=== PATIENT | male | born 1955 | race Caucasian/White ===

== ENCOUNTER 2017-11-02 09:56 | Day surgery (SDC) | payer BC ==
[2017-11-02 10:39] LABS: #Lymphocytes 0.8 thou/uL (1.20-3.40); #Monocytes 0.8 thou/uL (0.11-0.59); %Basophils 0.1 % (0.0-1.0); %Eosinophils 0.4 % (0.0-10.0); %Lymphocytes 6.8 % (21.0-51.0); %Monocytes 7.2 % (0.0-10.0); %Neutrophils 85.5 % (42.0-75.0); Mean Corpuscular HGB CONC 32.8 g/dL (32.0-36.0); Mean Corpuscular Hemoglobin 29.5 pg (27.0-31.0); Mean Corpuscular Volume 89.9 fL (78.0-98.0); Mean Platelet Volume 7.5 fL (7.4-10.4); Platelet Count 156 thou/uL (130-400); RBC Distribution Width 12.3 % (11.5-14.5); Red Blood Cell (RBC) Count 5.43 mill/uL (4.70-6.10); White Blood Cell (WBC) Count 11.6 thou/uL (4.8-10.8)
[2017-11-02 11:03] LABS: ALT (SGPT) 18 U/L (8-55); AST (SGOT) 18 U/L (5-34); Albumin 4.4 g/dL (3.4-4.8); Alkaline Phosphatase 65 U/L (40-150); Anion Gap 9 mmol/L (10-20); BUN (Urea Nitrogen) 14 mg/dL (8.4-25.7); Bilirubin, Total 1.6 mg/dL (0.2-1.2); CK (CPK) 138 U/L (30-200); Calc. Creatinine Clearance 0 mL/min (70-130); Calcium 9.3 mg/dL (7.8-10.44); Carbon Dioxide 27 mmol/L (23-31); Chloride 104 mmol/L (98-107); Estimated GFR-MDRD 71; Globulin 2.8 g/dL (2.4-3.5); Glucose 98 mg/dL (80-115); Lipase 11 U/L (8-78); Potassium 3.8 mmol/L (3.5-5.1); Protein, Total 7.2 g/dL (5.8-8.1); Sodium 136 mmol/L (136-145)
[2017-11-02 11:09] LABS: CKMB 2.4 ng/mL (0-6.6); Troponin I Less than 0.010 ng/mL (< 0.028)
[2017-11-02] MEDS ORDERED: Iopamidol 370 76% 50 ML VIAL FS ONE (11:22)
[2017-11-02] MEDS ORDERED: ISOVUE-370 76%-LOCM 1 ML ONE (11:22)
[2017-11-02 11:52] LABS: Bilirubin Negative (Negative); Blood, Urine Negative (Negative); Clarity CLEAR (Clear); Glucose, Urine (Dipstick) Negative (Negative); Leukocyte Negative (Negative); Nitrite Negative (Negative); Protein, Urine (Dipstick) Negative (Neg-Trace); pH, Urine 7.5 (5.0-9.0)
--- NOTE | 2017-11-02 13:49 | CT ---
CT ABDOMEN AND PELVIS WITH IV CONTRAST: 11/02/2017 HISTORY: Epigastric abdominal pain and right lower quadrant pain that started one day ago. FINDINGS: There are gallbladder calculi visualized, with the largest calculus seen near the fundus of the gallb ladder, measuring 3.1 cm. There is minimal atelectasis versus scarring at each lung base. The liver, spleen, pancreas, bilateral adrenal glands, kidneys, and urinary bladder demonstrate a nor mal CT appearance. The appendix is dilated, measuring 1.5 cm in diameter, and there is adjacent periappendiceal inflamma tory change, with a small amount of fluid in the pelvis. There is also cecal apical thickening, and findings are compatible with acute appendicitis. No free intraperitoneal gas is seen, and there is n o fluid collection seen to suggest an abscess. The opacified small bowel is normal in caliber. Minimal vascular calcification is seen in the abdominal aorta and iliac arteries. The common iliac a rteries are ectatic bilaterally. Small fat-containing inguinal hernias are present. Calcification is seen in the prostate gland, and the prostate gland is enlarged, measuring 5.7 cm in transverse dimensions. Mild degenerative changes are seen in the spine. There are colonic diverticula seen in the sigmoid colon. IMPRESSION: 1. Acute appendicitis. 2. Cholelithiasis. 3. Colonic diverticulosis. The above findings were discussed with Dr. Magaña in the emergency department on 11/02/2017 at [address] CODE CR POS: [facility]
[2017-11-02] MEDS ORDERED: Piperacillin/Tazobactam 3.375 GM VIAL ONE (13:51)
[2017-11-02] MEDS ORDERED: Lidocaine 1% PF 5 ML VIAL ONE (14:05)
[2017-11-02] MEDS ORDERED: PHENYLEPHRINE-NS 100 MCG/ML 10 ML SYRINGE ONE (14:05)
[2017-11-02] MEDS ORDERED: Glycopyrrolate 0.2 MG/ML 5 ML SYRINGE ONE (14:05)
[2017-11-02] MEDS ORDERED: PROPOFOL 200 MG/20 ML VIAL ONE (14:05)
[2017-11-02] MEDS ORDERED: Ondansetron HCl/PF 4 MG/2 ML Vial ONE (14:05)
[2017-11-02] MEDS ORDERED: Dexamethasone 20 MG/5 ML VIAL ONE (14:05)
[2017-11-02] MEDS ORDERED: Ketorolac Tromethamine 30 MG/ML VIAL ONE (15:15)
--- NOTE | 2017-11-02 15:22 | HP ---
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 Yesterday, he had onset of epigastric pain localizing to his right lower quadrant . He has suffered anorexia and nausea, but no vomiting. He has not had fever, presents to the [facility] ency room, evaluated and CAT scan revealed changes consistent with acute appendicitis. He was evalua jag by Dr. Magaña. ALLERGIES: None. SOCIAL HISTORY: Tobacco none. Alcohol none. MEDICATIONS: None. PAST SURGICAL HISTORY: Colonoscopies, polypectomies in the past. Recent colonoscopy was normal. OR IF mandibular fracture, ankle fracture as a teenager. PAST MEDICAL HISTORY: Noncontributory. Ten years ago, he had a cardiac stress test as a baseline, i t was normal. FAMILY HISTORY: Noncontributory. REVIEW OF SYSTEMS: Ten point noncontributory. PHYSICAL EXAMINATION: VITAL SIGNS: 107 kg, 146/94, 85, 17, 99.4 degrees. HEENT: Unremarkable. LUNGS: Clear to auscultation. CARDIAC: Regular rate and rhythm without murmur or gallop. ABDOMEN: Soft, tenderness in the right lower quadrant with guarding and rebound. Positive McBurney' s point tenderness. EXTREMITIES: Unremarkable. No ankle edema. Good pulses. No lymphadenopathy in the neck, groin, ax illa. SKIN: Normal. NEUROLOGICAL: Cranial nerves normal. Neurologically intact. LABORATORY DATA: White count 11, hemoglobin 16. Basic metabolic profile normal. Bilirubin 1.6. Ur inalysis unremarkable. CAT scan revealed changes consistent with acute appendicitis. ASSESSMENT AND PLAN: Acute appendicitis. Recommended laparoscopic video appendectomy. Risk of infe ction, bleeding, reoperation, fistula formation, open procedure discussed. He consents. Small fat c ontaining inguinal hernias present on CAT scan, but asymptomatic. Diverticulosis noted. Cholelithia sis appreciated on his CAT scan, asymptomatic.
[2017-11-02] MEDS ORDERED: Bupivacaine HCl 0.5%/Epinephrine 1:200,000/PF 30 ml Vial ONE (16:34)
[2017-11-02] MEDS ORDERED: Fentanyl 250 MCG/5 ML VIAL ONE (16:37)
[2017-11-02] MEDS ORDERED: Midazolam HCl 2 mg/2 ml Vial ONE (16:40)
--- NOTE | 2017-11-03 09:00 | OP ---
DATE OF PROCEDURE: 11/02/2017 PREOPERATIVE DIAGNOSIS: Acute appendicitis. POSTOPERATIVE DIAGNOSIS: Acute appendicitis. PROCEDURE: Laparoscopic video appendectomy. SURGEON: Alfonso Agarwal M.D. ANESTHESIA: General. Local of 0.5% Marcaine with epinephrine 30 mL. PROCEDURE IN DETAIL: Patient was taken to the operating room where under general anesthesia. placed Rm catheter and it was removed at the end of the procedure. Abdomen was clipped of hair, p repared with ChloraPrep, draped in routine fashion. Local anesthetic infiltrated into skin and subcu taneous tissue about the each port site. The infraumbilical incision made. Pneumoperitoneum to 15 m mHg obtained with the Veress needle, replacing it with a 5-port laparoscope inserted. Right subcosta l incision made laterally and 5-mm port placed. Suprapubic incision made and 12-port placed. Append ix was acutely inflamed. Mesoappendix taken down with LigaSure. Stump of the appendix dividing with Endo blue load KAPIL stapler. Stapled cecal stump, hemostasis gained with clips. Appendix placed in Endobag and removed. Good hemostasis ensured as the area was irrigated. Irrigant evacuated. Suprap ubic fascia approximated with 0 Vicryl GraNee needle. Pneumoperitoneum and irrigant evacuated. Hemo stasis ensured. All skin incisions approximated with interrupted subdermal 4-0 Monocryl and DermaGlu e applied.
== END 2017-11-02 19:20 | disposition home or self-care (01) ==
LOC: ERS 09:56 → SDC 13:42
PROVIDERS: ATTEND Specialist
PROC: 0DTJ4ZZ Resection of Appendix, Percutaneous Endoscopic Approach (ICD-10-PCS; principal; 2017-11-02)
DX: K35.80 Unspecified acute appendicitis (principal)
CPT/HCPCS: 36415; 74177; 80053; 81003; 82553; 83690; 84484; 85025; 88304; 93005; 96361; 96365; J0131; J0670; J1100; J1885; J2001; J2250; J2405; J2543; J2704; J3010

== ENCOUNTER 2018-11-19 23:20 | Inpatient (IN) | payer MEDICARE, BC ==
[2018-11-19] MEDS ORDERED: Digoxin 0.5 MG/2 ML AMP ONE (23:46)
[2018-11-19] MEDS ORDERED: Magnesium 2 GM/50 ML BAG (IN WATER) ONE (23:46)
[2018-11-19 23:56] LABS: Hemoglobin 14.2 g/dL (14.0-18.0); Mean Corpuscular Hemoglobin 29.1 pg (27.0-31.0); Mean Corpuscular Volume 85.6 fL (78.0-98.0); Mean Platelet Volume 8.4 fL (7.4-10.4); Platelet Count 157 thou/uL (130-400); RBC Distribution Width 12.2 % (11.5-14.5); Red Blood Cell (RBC) Count 4.87 mill/uL (4.70-6.10); White Blood Cell (WBC) Count 13.2 thou/uL (4.8-10.8)
[2018-11-20 00:13] LABS: Band 3 % (5-11); Lymphocytes 6 % (21-51); MDiff Complete? YES; Monocytes 5 % (0-10); Neutrophil 86 % (42-75); Platelet Morphology Comment Appears Adequate; RBC Morphology Normal
[2018-11-20 00:23] LABS: ALT (SGPT) 69 U/L (8-55); AST (SGOT) 52 U/L (5-34); Albumin 3.5 g/dL (3.4-4.8); Alkaline Phosphatase 102 U/L (40-150); Anion Gap 13 mmol/L (10-20); BUN (Urea Nitrogen) 17 mg/dL (8.4-25.7); Bilirubin, Total 1.9 mg/dL (0.2-1.2); CK (CPK) 201 U/L (30-200); Calc. Creatinine Clearance 0 mL/min (70-130); Calcium 8.7 mg/dL (7.8-10.44); Carbon Dioxide 20 mmol/L (23-31); Chloride 89 mmol/L (98-107); Estimated GFR-MDRD 79; Globulin 3.3 g/dL (2.4-3.5); Glucose 138 mg/dL (80-115); Lipase 6 U/L (8-78); Potassium 3.5 mmol/L (3.5-5.1); Protein, Total 6.8 g/dL (5.8-8.1)
[2018-11-20 00:25] LABS: Sodium 118 mmol/L (136-145)
[2018-11-20] MEDS ORDERED: Piperacillin/Tazobactam 4.5 GM VIAL ONE (01:16)
[2018-11-20] MEDS ORDERED: Enoxaparin Sodium 100 MG/ML SYRINGE ONE (01:42)
[2018-11-20] MEDS ORDERED: Enoxaparin Sodium 30 MG/0.3 ML SYRINGE ONE (01:49)
[2018-11-20 03:22] LABS: Troponin I 0.025 ng/mL (< 0.028)
[2018-11-20 04:10] LABS: Bilirubin Negative (Negative); Blood, Urine Trace (Negative); Clarity Clear (Clear); Glucose, Urine (Dipstick) Normal (Negative); Leukocyte Negative Leu/uL (Negative); Nitrite Negative (Negative); Protein, Urine (Dipstick) Negative (Neg-Trace); RBC/HPF 0-3 HPF (0-3); Squamous Epithelial None Seen HPF (0-3); Urobilinogen Normal mg/dL (Less than 2); WBC/HPF 0-3 HPF (0-3)
[2018-11-20 04:12] LABS: Bacteria/HPF 1+ HPF (None Seen)
[2018-11-20] MEDS ORDERED: Acetaminophen 500 MG TAB ONE (05:20)
[2018-11-20] MEDS ORDERED: Digoxin 0.5 MG/2 ML AMP ONE (05:52)
[2018-11-20 06:12] LABS: Troponin I 0.025 ng/mL (< 0.028)
--- NOTE | 2018-11-20 07:33 | RAD ---
EXAM: Single view of the chest HISTORY: Cough COMPARISON: 07/20/2016 FINDINGS: Single view of the chest shows a normal sized cardiomediastinal silhouette. There is no magnus dence of consolidation, mass, or pleural effusion. The bones are unremarkable. IMPRESSION: No evidence of acute cardiopulmonary disease
--- NOTE | 2018-11-20 07:40 | CT ---
PRELIMINARY REPORT/[facility]/AFTER HOURS PROCEDURE EXAM: CT Angiography Chest With Contrast EXAM DATE/TIME: 11/20/2018 12:49 AM CLINICAL HISTORY: 63 years old, male; Abnormal findings; Abnormal diagnostic tests; Patient HX: Er 9. 63 y/o m presents to ED C/O a few days of worsening weakness, with associated fever, malaise, constipation, nausea, cough. Elevated d-dimer TECHNIQUE: Imaging protocol: Axial computed tomographic angiography images of the chest with intravenous contrast using CT angiography protocol. 3D rendering: MIP reconstructed images were created and reviewed. COMPARISON: No relevant prior studies available. FINDINGS: Pulmonary arteries: Normal. No pulmonary emboli. Aorta: Unremarkable. No aortic aneurysm. No aortic dissection. Thyroid: 1.8 cm right lobe thyroid nodule. Lungs: Large multifocal bilateral pneumonia in the right upper lobe and much of the left lower lobe. Pleural space: Trace bilateral pleural effusions. Heart: Unremarkable. No cardiomegaly. No pericardial effusion. Mediastinum: Esophagus is unremarkable. Gallbladder and bile ducts: Incompletely visualized cholelithiasis. Spleen: Spleen is incompletely visualized but there is likely splenomegaly. Lymph nodes: Mildly prominent mediastinal lymph nodes do not exceed 1 cm in short axis and are probably reactive. Bones/joints: Unremarkable. No acute fracture. Soft tissues: Unremarkable. IMPRESSION: 1. Large multifocal bilateral pneumonia in the right upper lobe and much of the left lower lobe. 2. Trace bilateral pleural effusions. 3. 1.8 cm right lobe thyroid nodule. 4. Spleen is incompletely visualized but there is likely splenomegaly. Thank you for allowing us to participate in the care of your patient. Dictated and Authenticated by: García Cruz MD 11/20/2018 1:57 AM Central Time ([place] & [place]) FINAL REPORT CT PULMONARY ANGIOGRAM WITH IV CONTRAST AND 3D POST PROCESSING: I agree with the report given by Dr. García Cruz of [facility]. CODE QA Transcribed Date/Time: 11/20/2018 8:26 AM
[2018-11-20 09:45] LABS: Anion Gap 11 mmol/L (10-20); BUN (Urea Nitrogen) 13 mg/dL (8.4-25.7); Calc. Creatinine Clearance 0 mL/min (70-130); Calcium 8.8 mg/dL (7.8-10.44); Carbon Dioxide 23 mmol/L (23-31); Chloride 96 mmol/L (98-107); Estimated GFR-MDRD 66; Glucose 128 mg/dL (80-115); Potassium 3.7 mmol/L (3.5-5.1); Sodium 126 mmol/L (136-145)
[2018-11-20] MEDS ORDERED: Piperacillin/Tazobactam 4.5 GM in Sodium Chloride 0.9% 100 ML IVPB SCH ×2 (12:30→20:00)
[2018-11-20] MEDS ORDERED: Sodium Chloride 0.9% 1,000 ML IV SCH (12:30)
[2018-11-20] MEDS ORDERED: Loperamide HCl 2 MG CAP PO PRN (12:52)
[2018-11-20] MEDS ORDERED: Ondansetron PF 4 MG/2 ML Vial IVP PRN (12:52)
[2018-11-20] MEDS ORDERED: Vancomycin HCl 1 GM in Premix Bag 1 BAG IVPB SCH (13:00)
[2018-11-20] MEDS ORDERED: Enoxaparin Sodium 40 MG/0.4 ML SYRINGE SC SCH (13:00)
[2018-11-20] MEDS: Digoxin 0.5 MG/2 ML AMP SLOW IVP SCH (13:26)
[2018-11-20] MEDS ORDERED: Prevnar 13-Val Conj/PF 0.5 ML SYRINGE IM ONE (13:30)
[2018-11-20] MEDS: Sodium Chloride 0.9% 1,000 ML IV SCH ×2 (14:10→20:00)
[2018-11-20 14:44] LABS: Hemoglobin 15.1 g/dL (14.0-18.0); Platelet Count 153 thou/uL (130-400)
[2018-11-20] MEDS ORDERED: Diltiazem HCl 125 MG, Admixture Fee 1 EACH in Sodium Chloride 0.9% 100 ML IVPB SCH (15:00)
[2018-11-20] MEDS ORDERED: Iopamidol 370 76% 100 ML VIAL ONE (15:06)
[2018-11-20] MEDS: Acetaminophen 325 MG TAB PO PRN (15:29)
[2018-11-20] MEDS: Diltiazem HCl 125 MG, Admixture Fee 1 EACH in Sodium Chloride 0.9% 100 ML IVPB SCH (16:00)
--- NOTE | 2018-11-20 16:27 | CON ---
DATE OF CONSULTATION: 11/20/2018 This encompassed 75 minutes time, of that time, greater 50% spent with the patient and/or on the patient's unit in the hospital. REASON FOR EVALUATION: Pneumonia. HISTORY OF PRESENT ILLNESS: The patient is a 63-year-old male, who has had a 3-day history of cough, congestion, intermittent fever, and shortness of breath. He came to the emergency room last night, was found to be in atrial fibrillation with rapid ventricular response. He also had bilateral pneumonia on a CT scan. PAST MEDICAL HISTORY: Remarkable for; 1. Asthma. 2. Hypertension. 3. Gastroesophageal reflux. PAST SURGICAL HISTORY: Ankle surgery and appendectomy. SOCIAL HISTORY: Nonsmoker. Does not consume alcohol regularly. Does not use illicit drugs. ALLERGIES: NONE. MEDICATIONS: Prior to admission; 1. Breo Ellipta 1 puff daily. 2. Losartan 50 mg daily. 3. Omeprazole 40 mg daily. REVIEW OF SYSTEMS: The patient recently got a shingles shot. Thinks that there may be an association between the shot and his current illness. He has had subjective fever and chills. He has had some nausea and vomiting. No chest pain, hematemesis, melena, hematochezia, hematuria, or dysuria. PHYSICAL EXAMINATION: VITAL SIGNS: Temperature 101.7, pulse 97, respirations 22, and blood pressure 139/82. GENERAL: He is awake. He is able to converse, but he looks miserable. HEENT: Unremarkable. NECK: No adenopathy or JVD. LUNGS: He has inspiratory crackles, right upper lobe and on the left lower lobe. CARDIOVASCULAR: S1 and S2. Irregularly irregular without murmur. ABDOMEN: Soft, nontender, and nondistended. EXTREMITIES: No clubbing, cyanosis, edema, or rash. NEUROLOGIC: Nonfocal. LABORATORY DATA: White blood cell count 13.2, hematocrit 41.7, and platelet count 157 with 86% neutrophils and 3% bands. D-dimer is 1.3. Sodium 126, potassium 3.7, chloride 96, CO2 of 23, BUN 13, creatinine 1.1, and glucose 128. I reviewed his CT scan. He has a right upper lobe and left lower lobe infiltrate. ASSESSMENT: 1. Bilateral pneumonia. 2. Atrial fibrillation. 3. History of asthma. PLAN: 1. Agree with current antibiotics, which include azithromycin, piperacillin, and vancomycin. 2. Rate control atrial fibrillation with diltiazem. 3. He has been empirically anticoagulated for the atrial fibrillation. 4. We will follow. Job ID: [id number]
--- NOTE | 2018-11-20 17:05 | CON ---
DATE OF CONSULTATION: REASON FOR CONSULTATION: Hyponatremia. HISTORY OF PRESENT ILLNESS: A 63-year-old gentleman, who presented to the hospital complaining of weakness. The patient was noted to have a sodium of 118. I was consulted and the repeat sodium was 126. The patient denies no headache, numbness, tingling, or weakness. Denies any nausea, vomiting, or chest pain. PAST MEDICAL HISTORY: Significant for appendicitis, hypertension, history of colonoscopy, right mandibular fractures, and ankle fracture as a teenager. SOCIAL HISTORY: No alcohol or drug use. FAMILY HISTORY: Negative for ESRD. ALLERGIES: REVIEWED. MEDICATIONS: Home medication list reviewed. Hospital medication list reviewed. REVIEW OF SYSTEMS: A 15-point review of system was performed negative except as noted above. GENERAL: HEAD: NECK: No swelling or lumps. NOSE: No epistaxis or discharge. EYES: No diplopia or pain. RESPIRATORY: CARDIOVASCULAR: GASTROINTESTINAL: /SILVICULTURE FORESTER: MUSCULOSKELETAL: No joint pain. NEUROPSYCHIATIC SYSTEMS: No suicidal ideation. No ideation. SKIN: Denies any rash or ulcer. CONSTITUTIONAL: No fever or chills. PHYSICAL EXAMINATION: CONSTITUTIONAL: On exam, the patient is awake and alert. VITAL SIGNS: Afebrile, pulse 70, breathing 16, blood pressure 130/70. GENERAL APPEARANCE AND MENTAL STATUS: Fair. HEAD/NECK: Normocephalic. Atraumatic. EYES: EOMI. No deformity. EARS: Clear. No ulcers. NOSE: Intact. No lesions. MOUTH: Clear. No discharge. THROAT: Clear. No exudate. LUNGS: Clear. No crackles. CARDIAC: S1, S2. No rub. ABDOMEN: Benign. Bowel sounds positive. GENITALIA/RECTUM: Rm absent. BACK/EXTREMITIES: Edema 0+. NEUROLOGICAL: Alert and motor intact. SKIN: LYMPHATICS: LABORATORY DATA: Labs show sodium 126, ASSESSMENT AND RECOMMENDATION: Chronic kidney disease stage 3, stable. Hypertension, stable. Hyponatremia, most likely because of SIADH. Would recommend fluid restriction and follow sodium closely. Do not correct more than 10 mEq per 24 hours. If corrects also, then repeat stat. We will start the patient on D5W. Above findings were discussed with the patient. All questions were answered. Job ID: [id number]
[2018-11-20] MEDS: cefTRIAXone\\ROCEPHIN 2 GM in Sodium Chloride 0.9% 100 ML IVPB SCH (17:09)
[2018-11-20] MEDS: Azithromycin 500 MG in Sodium Chloride 0.9% 250 ML 250 ML IVPB SCH (17:58)
[2018-11-20 18:07] LABS: Anion Gap 15 mmol/L (10-20); BUN (Urea Nitrogen) 12 mg/dL (8.4-25.7); Calc. Creatinine Clearance 100 mL/min (70-130); Calcium 8.5 mg/dL (7.8-10.44); Carbon Dioxide 21 mmol/L (23-31); Chloride 95 mmol/L (98-107); Estimated GFR-MDRD 66; Glucose 120 mg/dL (80-115); Potassium 3.7 mmol/L (3.5-5.1); Sodium 127 mmol/L (136-145)
--- NOTE | 2018-11-20 19:04 | CON ---
DATE OF CONSULTATION: 11/20/2018 HISTORY OF PRESENT ILLNESS: The patient is a very pleasant 63-year-old gentleman who presents for evaluation of dyspnea and palpitations. The patient has no previous cardiac history. Approximately, the patient states 2 weeks ago he started noticing increasing dyspnea. He also noted that his heart rate was elevated. He felt palpitations. The patient denied having any chest discomfort. The patient started developing fevers and chills. He presented to the emergency room with marked dyspnea. PAST MEDICAL HISTORY: None. PAST SURGICAL HISTORY: Appendectomy. He has had ankle surgery and jaw surgery. SOCIAL HISTORY: Nonsmoker. No use of excess alcohol. MEDICATIONS: He takes; 1. Prilosec 1 tablet daily. 2. Losartan 50 daily. FAMILY HISTORY: No strong family history of heart disease. ALLERGIES: NO KNOWN DRUG ALLERGIES. REVIEW OF SYSTEMS: Ten-point system otherwise unremarkable. PHYSICAL EXAMINATION: GENERAL: This is an obese gentleman, in mild distress. VITAL SIGNS: Blood pressure 153/91. NECK: Showed no jugular venous distention. LUNGS: Have crackles throughout both lung birch. HEART: Irregular rate and rhythm with a normal S1, S2. No murmurs. ABDOMEN: Distended. EXTREMITIES: Showed no edema. VASCULAR: Radial pulses 2+. LABORATORY DATA: Sodium was 126, potassium 3.7, chloride 96, bicarbonate 23, BUN 13, creatinine 1.1, and glucose 128. Troponin was 0.025. His white blood cell count was 13.2, hemoglobin 14.2, hematocrit 41.7, and platelets are 157. His EKG revealed him to have atrial fibrillation with a rapid ventricular response. Chest x-ray reveals him to have normal heart size with evidence of left-sided infiltrate. IMPRESSION: 1. New onset atrial fibrillation. 2. Pneumonia. 3. Hyponatremia. 4. History of hypertension. 5. Obesity. This gentleman presents with new onset atrial fibrillation and pneumonia. The patient is being treated with IV antibiotics. The patient has already been treated with IV Cardizem and digoxin. The patient remains in atrial fibrillation. We will proceed with MAHSA cardioversion. We will check the patient's echocardiogram. We will follow this patient with you through his hospitalization. Please call my office. Job ID: [id number]
[2018-11-20] MEDS: Vancomycin HCl 1 GM in Premix Bag 1 BAG IVPB SCH (21:03)
[2018-11-20] MEDS: Apixaban 5 MG TAB PO SCH (21:04)
--- NOTE | 2018-11-20 23:09 | HP ---
HISTORY OF PRESENT ILLNESS: The patient is a 63-year-old white male, who presented to the emergency room with a 3-day history of generalized malaise, fatigue. He had multiple episodes of vomiting. He was seen and evaluated in the ER. He was found to be in atrial fibrillation with rapid ventricular response. This was treated with IV digoxin. During his workup, he also was found to be febrile. Chest x-ray was initially noted to be normal. However, he had a CT scan of the chest due to elevated D-dimer and that has revealed a right upper lobe and left lower lobe pneumonia. He notes that he was in [place] approximately 3 to 4 weeks ago. He has returned. He noted he started feeling bad approximately 4 to 5 days ago. He noted generalized nausea, some cough that has been productive. No others findings were noted other than vomiting. He now notes he has had some diarrhea later today. As noted, he was seen and evaluated in the emergency room, received IV vancomycin, IV Zosyn in the emergency room. His initial white count was slightly elevated, although his chest x-ray was noted to be normal. His sodium was noted to be 118. He now states he is feeling a little bit better. He has not noted any severe shortness of breath or does note that he feels like he is having some cough now. He has no prior history of pneumonic processes or any previous history of lung disease. He has no prior history of heart problems, although he has been in my office on several occasions noting symptoms of palpitations. This has not been fully evaluated. He is now in atrial fibrillation. ALLERGIES: HE HAS NO KNOWN ALLERGIES. CURRENT MEDICATIONS: 1. Losartan 50 mg daily. 2. Omeprazole 40 mg daily. PAST SURGICAL HISTORY: Positive for orthopedic surgeries. PAST MEDICAL HISTORY: Positive for hypertension, gastroesophageal reflux disease. He has had a recent history of some asthma. SOCIAL AND PERSONAL HISTORY: He is . He does not smoke. Drinks alcohol socially. FAMILY HISTORY: Noncontributory. REVIEW OF SYSTEMS: GI: Positive as above. : Negative. CARDIOVASCULAR: Positive as above. NEUROLOGIC: Otherwise negative. PHYSICAL EXAMINATION: VITAL SIGNS: Temperature 98.4, pulse 107, irregular, respirations 20, O2 saturations 94% on 2 L, BP 153/91. GENERAL: He is alert, active, does appear to be slightly sick, lethargic, does not appear to be in respiratory distress. Nontoxic appearing. HEENT: Sclerae and conjunctivae clear. NECK: Supple. Full range of motion. No masses. LUNGS: Reveal bilateral breath sounds, somewhat diminished on the right when compared to the left. HEART: Reveals an irregularly irregular rhythm without murmur, gallops, or rubs. He is slightly tachycardic. ABDOMEN: Soft. There is no evidence of rebound or guarding. The bowel sounds are present and active. There is no hepatosplenomegaly noted. EXTREMITIES: Show no evidence of any clubbing, edema, or cyanosis noted at this time. LABORATORY DATA: His initial white blood count 13.2, hemoglobin 14.2, hematocrit 41.7, neutrophils 86, bands 3, lymphocytes 6, platelet count 157. Admission chemistry; sodium 118, potassium 3.5, chloride 89, CO2 20, BUN 17, and creatinine 0.96. Troponins are negative x3. Urinalysis is unremarkable. Lactic acid is 1.1. Chest x-ray is clear. CT angio of the chest done for elevated D-dimer shows bilateral pneumonia, right upper lobe and much of the left lower lobe affective, trace bilateral effusions. Plane is slightly large. No evidence of any pulmonary emboli was noted. IMPRESSION: This is a 63-year-old male, who presents with; 1. Pneumonic process. Now also is having some gastroenterology symptoms of vomiting with some diarrhea. 2. Hyponatremia. 3. Atrial fibrillation with rapid ventricular response. PLAN: 1. The patient has been evaluated. We will get Pulmonary consult as well as Cardiology consult. Possibly need to be on Cardizem drip. We will correct serum sodium with IV fluids. 2. Antibiotic coverage with azithromycin as well as Rocephin as well as vancomycin. 3. I have placed him on Eliquis and consideration of possible cardioversion. 4. I have discussed the findings with the patient's family at the bedside. They fully understand the need for all treatments. They verbalized understanding of the above noted treatments. Job ID: [id number]
[2018-11-21] MEDS: Acetaminophen 325 MG TAB PO PRN ×2 (00:06→13:24)
[2018-11-21] MEDS: Sodium Chloride 0.9% 1,000 ML IV SCH ×4 (02:55→20:48)
[2018-11-21] MEDS: Diltiazem HCl 125 MG, Admixture Fee 1 EACH in Sodium Chloride 0.9% 100 ML IVPB SCH (03:29)
[2018-11-21 04:46] LABS: #Lymphocytes 0.7 thou/uL (1.20-3.40); #Monocytes 0.8 thou/uL (0.11-0.59); #Neutrophils 6.2 thou/uL (1.40-6.50); %Basophils 0.2 % (0.0-1.0); %Eosinophils 0.1 % (0.0-10.0); %Lymphocytes 8.4 % (21.0-51.0); %Monocytes 10.9 % (0.0-10.0); %Neutrophils 80.4 % (42.0-75.0); Hemoglobin 13.4 g/dL (14.0-18.0); Mean Corpuscular HGB CONC 33.6 g/dL (32.0-36.0); Mean Corpuscular Hemoglobin 29.8 pg (27.0-31.0); Mean Corpuscular Volume 88.7 fL (78.0-98.0); Mean Platelet Volume 8.3 fL (7.4-10.4); Platelet Count 166 thou/uL (130-400); RBC Distribution Width 12.4 % (11.5-14.5); Red Blood Cell (RBC) Count 4.49 mill/uL (4.70-6.10); White Blood Cell (WBC) Count 7.7 thou/uL (4.8-10.8)
[2018-11-21 05:09] LABS: Anion Gap 9 mmol/L (10-20); BUN (Urea Nitrogen) 11 mg/dL (8.4-25.7); Calc. Creatinine Clearance 111 mL/min (70-130); Calcium 8.3 mg/dL (7.8-10.44); Carbon Dioxide 24 mmol/L (23-31); Chloride 97 mmol/L (98-107); Estimated GFR-MDRD 74; Glucose 110 mg/dL (80-115); Potassium 3.4 mmol/L (3.5-5.1); Sodium 127 mmol/L (136-145)
--- NOTE | 2018-11-21 08:40 | PRG ---
DATE OF SERVICE: 11/21/2018 SUBJECTIVE: The patient is up in a chair, it looks like he feels a little better today. OBJECTIVE: VITAL SIGNS: Temperature 98.3, pulse 92, respirations 16, O2 saturation 98% on 2 L. HEENT: Unremarkable. NECK: No adenopathy or JVD. LUNGS: He has left lower lobe crackles posteriorly. CARDIAC: S1 and S2. Irregularly irregular, but rate controlled. ABDOMEN: Soft and nontender. EXTREMITIES: No edema. LABORATORY DATA: White blood cell count has decreased to 7.7, hematocrit 39.9, and platelet count 166. Sodium 127, potassium 3.4, chloride 97, CO2 of 24, BUN 11, creatinine 1.0, glucose 110. Cultures show group A strep from the throat. ASSESSMENT: Bilateral pneumonia. PLAN: 1. Continue vancomycin, Rocephin, and azithromycin for the time being. 2. Probably, we will be able to scale back on his IV fluids by tomorrow. 3. Scheduled for cardioversion later today. Job ID: [id number]
[2018-11-21 10:22] VITALS: BMI 33.9
[2018-11-21] MEDS ORDERED: Propofol 1,000 MG/100 ML VIAL IV ONE ×2 (10:22→10:23)
[2018-11-21] MEDS ORDERED: PROPOFOL 200 MG/20 ML VIAL ONE (10:30)
[2018-11-21] MEDS ORDERED: Potassium Chloride 20 MEQ TAB PO SCH (10:45)
--- NOTE | 2018-11-21 11:08 | PQF ---
CLINICAL DOCUMENTATION IMPROVEMENT CLARIFICATION FORM: ICD-10 Updated PLEASE DO AN ADDENDUM TO THE PROGRESS NOTE WITH ANY DOCUMENTATION UPDATES OR ADDITIONS AND CARRY THROUGH TO DC SUMMARY. THANK YOU. DATE: 11/21/18 ATTN : DR. BATRES Please exercise your independent, professional judgment in responding to the clarification form. Clinical indicators are provided on the bottom of this form for your review Please check appropriate box(s) to clarify if the following diagnosis has been ruled in or ruled out: "SEPSIS" [ ] Ruled in diagnosis [ ] Continue to treat [ ] Resolved [ ] Ruled out diagnosis [ ] Cannot rule out diagnosis [ ] Other diagnosis [ ] Unable to determine In addition, please specify: Present on Admission (POA): [ ] Yes [ ] No [ ] Unable to determine For continuity of documentation, please document condition throughout progress notes and discharge summary. Thank You. CLINICAL INDICATORS - SIGNS / SYMPTOMS / LABS ER NOTE: "SEPSIS" PULSE 124 RR 32 WBC 13.2 RISKS: PNEUMONIA TREATMENT: IV FLUIDS (ER-PRESENT) IV ZOSYN (ER) IV VANCOMYCIN (ER-PRESENT) IV LEVAQUIN (ER) IV ROCEPHIN (11/20-PRESENT) IV ZITHROMAX (11/20-PRESENT) BLOOD CULTURES SERIAL LABS [employer] Winform Viewer (This form is maintained as a part of the permanent medical record) 2014 [employer] [place]. All Rights Reserved ISAIAS [email or web address] Office: [phone] [facility]
--- NOTE | 2018-11-21 11:11 | PRG ---
DATE OF SERVICE: 11/21/2018 SUBJECTIVE: This is a 63-year-old gentleman, being seen for acute hyponatremia with improving sodium. The patient denies any nausea, vomiting, or chest pain. OBJECTIVE: GENERAL: The patient is awake and alert. VITAL SIGNS: Afebrile, pulse 103, breathing 16, and blood pressure 132/75. GENERAL APPEARANCE AND MENTAL STATUS: Fair. HEAD/NECK: Normocephalic. Atraumatic. EYES: EOMI. No deformity. EARS: Clear. No ulcers. NOSE: Intact. No lesions. MOUTH: Clear. No discharge. THROAT: Clear. No exudate. LUNGS: Clear. No crackles. CARDIAC: S1, S2. No rub. ABDOMEN: Benign. Bowel sounds positive. GENITALIA/RECTUM: Rm absent. BACK/EXTREMITIES: Edema 0+. NEUROLOGICAL: Alert and motor intact. SKIN: LYMPHATICS: LABORATORY DATA: Reviewed. ASSESSMENT: 1. Chronic kidney disease, stage 2, stable. 2. Hyponatremia, stable. Continue fluid restriction. 3. Hypokalemia. Recommend potassium replacement. Check magnesium. Job ID: [id number]
--- NOTE | 2018-11-21 11:28 | OP ---
DATE OF PROCEDURE: 11/21/2018 PROCEDURE PERFORMED: Transesophageal echocardiogram. INDICATION: A 63-year-old gentleman with paroxysmal atrial fibrillation. DESCRIPTION OF PROCEDURE: The patient was taken to the PACU. The patient was sedated by Anesthesiology. A transesophageal probe was placed into the distal esophagus and stomach. Echocardiographic images were obtained. The transesophageal probe was removed. FINDINGS: 1. Normal left ventricular systolic function. 2. Left atrial enlargement. 3. Normal mitral and aortic valve. 4. Mild mitral regurgitation. 5. Mild aortic regurgitation. 6. Mild tricuspid regurgitation. 7. No thrombus noted in the left atrium or left atrial appendage. 8. Aneurysm in the interatrial septum. 9. Atherosclerotic debris in the descending aorta. IMPRESSION: No formed thrombus in the left atrium or left atrial appendage. Job ID: [id number]
--- NOTE | 2018-11-21 11:29 | OP ---
DATE OF PROCEDURE: 11/21/2018 PROCEDURE PERFORMED: Electrocardioversion. INDICATION: A 63-year-old gentleman with paroxysmal atrial fibrillation. DESCRIPTION OF PROCEDURE: The patient was taken to the PACU. The patient was sedated by Anesthesiology. The patient was shocked with 200 joules of synchronized electricity. The patient was converted to normal sinus rhythm. IMPRESSION: Successful electrocardioversion. Job ID: [id number]
[2018-11-21] MEDS: Apixaban 5 MG TAB PO SCH ×2 (12:17→20:45)
--- NOTE | 2018-11-21 12:44 | PRG ---
DATE OF SERVICE: 11/21/2018 SUBJECTIVE: The patient is sitting up in the chair. He is still complaining of feeling weak. T-max yesterday was 100.4. He is afebrile now. OBJECTIVE: VITAL SIGNS: At this time, temperature 98.3, blood pressure 122/75, and O2 saturations 94% on 2 L. GENERAL: He appears to be little bit fatigued. LUNGS: Reveal bilateral breath sounds, somewhat decreased on the left than compared to the right. No wheezes. HEART: Still reveals an irregularly irregular rhythm without murmur, gallops, or rubs. LABORATORY DATA: White blood count 7.7, hemoglobin 13.4, and hematocrit 39.9. Sodium 127, potassium 3.4, chloride 97, CO2 of 24, BUN 11, and creatinine 1.01. Blood cultures grew group A Streptococcus. He still remains on Rocephin, azithromycin, and vancomycin. IMPRESSION: 1. Pneumonia. 2. Atrial fibrillation. 3. Hyponatremia. PLAN: 1. Plan is to continue current antibiotic therapy. 2. Continue current IV fluids. 3. Probably will be going to cardioversion today. Job ID: [id number]
[2018-11-21] MEDS: Vancomycin HCl 1 GM in Premix Bag 1 BAG IVPB SCH ×2 (13:24→20:45)
[2018-11-21 15:00] LABS: Anion Gap 10 mmol/L (10-20); BUN (Urea Nitrogen) 12 mg/dL (8.4-25.7); Calc. Creatinine Clearance 106 mL/min (70-130); Calcium 8.1 mg/dL (7.8-10.44); Carbon Dioxide 22 mmol/L (23-31); Chloride 98 mmol/L (98-107); Estimated GFR-MDRD 69; Glucose 115 mg/dL (80-115); Magnesium 2.4 mg/dL (1.6-2.6); Potassium 3.3 mmol/L (3.5-5.1); Sodium 127 mmol/L (136-145)
[2018-11-21] MEDS: cefTRIAXone\\ROCEPHIN 2 GM in Sodium Chloride 0.9% 100 ML IVPB SCH (15:54)
[2018-11-21] MEDS: Azithromycin 500 MG in Sodium Chloride 0.9% 250 ML 250 ML IVPB SCH (15:55)
[2018-11-22 05:18] LABS: #Eosinphils 0.1 thou/uL (0.0-0.7); #Lymphocytes 0.8 thou/uL (1.20-3.40); #Monocytes 0.8 thou/uL (0.11-0.59); #Neutrophils 4.3 thou/uL (1.40-6.50); %Basophils 0.1 % (0.0-1.0); %Eosinophils 1.2 % (0.0-10.0); %Lymphocytes 13.1 % (21.0-51.0); %Monocytes 13.8 % (0.0-10.0); %Neutrophils 71.7 % (42.0-75.0); Hemoglobin 12.7 g/dL (14.0-18.0); Mean Corpuscular HGB CONC 33.5 g/dL (32.0-36.0); Mean Corpuscular Hemoglobin 29.7 pg (27.0-31.0); Mean Corpuscular Volume 88.6 fL (78.0-98.0); Mean Platelet Volume 8.1 fL (7.4-10.4); Platelet Count 188 thou/uL (130-400); RBC Distribution Width 12.7 % (11.5-14.5); Red Blood Cell (RBC) Count 4.29 mill/uL (4.70-6.10)
[2018-11-22 05:44] LABS: Anion Gap 13 mmol/L (10-20); BUN (Urea Nitrogen) 10 mg/dL (8.4-25.7); Calc. Creatinine Clearance 126 mL/min (70-130); Calcium 8.2 mg/dL (7.8-10.44); Carbon Dioxide 20 mmol/L (23-31); Chloride 101 mmol/L (98-107); Estimated GFR-MDRD 84; Glucose 96 mg/dL (80-115); Magnesium 2.4 mg/dL (1.6-2.6); Potassium 3.7 mmol/L (3.5-5.1); Sodium 130 mmol/L (136-145)
[2018-11-22] MEDS: Sodium Chloride 0.9% 1,000 ML IV SCH (05:50)
[2018-11-22] MEDS: Apixaban 5 MG TAB PO SCH ×2 (08:30→20:24)
[2018-11-22] MEDS: Vancomycin HCl 1 GM in Premix Bag 1 BAG IVPB SCH (08:30)
--- NOTE | 2018-11-22 11:14 | RAD ---
PA AND LATERAL VIEWS CHEST: HISTORY: Pneumonia. FINDINGS/IMPRESSION: Comparison is made with the exam of 11/19/2018. There are patchy infiltrates in the right upper lobe, left lower lobe, and a left upper and lower lob es and a right pleural effusion. POS: TPC
--- NOTE | 2018-11-22 11:49 | PRG ---
DATE OF SERVICE: 11/22/2018 SUBJECTIVE: This is a 63-year-old gentleman, being seen for acute kidney injury. The patient denied nausea, vomiting, or chest pain. OBJECTIVE: CONSTITUTIONAL: The patient is awake, alert. VITAL SIGNS: Afebrile, pulse 75, breathing 16, blood pressure was 154/92. GENERAL APPEARANCE AND MENTAL STATUS: Fair. HEAD/NECK: Normocephalic. Atraumatic. EYES: EOMI. No deformity. EARS: Clear. No ulcers. NOSE: Intact. No lesions. MOUTH: Clear. No discharge. THROAT: Clear. No exudate. LUNGS: Clear. No crackles. CARDIAC: S1, S2. No rub. ABDOMEN: Benign. Bowel sounds positive. GENITALIA/RECTUM: Rm absent. BACK/EXTREMITIES: Edema 0+. NEUROLOGICAL: Alert and motor intact. SKIN: LYMPHATICS: LABORATORY DATA: Creatinine 0.9, sodium 130. ASSESSMENT AND PLAN: 1. Hyponatremia due to syndrome of inappropriate antidiuretic hormone, improved. 2. Hypokalemia, improved. 3. Acute kidney injury, improved. No indication for dialysis hypertonic saline. I will sign off on this patient. The patient will follow up to see us in 2 weeks. Job ID: [id number]
--- NOTE | 2018-11-22 12:08 | PRG ---
DATE OF SERVICE: 11/22/2018 SUBJECTIVE: Mr. Garay is feeling much better, has better energy. He has undergone cardioversion yesterday and remain in the sinus rhythm. He reports still is having some cough, tolerating oral intake quite well. OBJECTIVE: VITAL SIGNS: He has been afebrile for 36 straight hours now. Blood pressure 140/89, 02 SAT is 92% on room air. GENERAL: He is alert, active, in no distress. LUNGS: Reveal rales at left base, left midfield, otherwise clear. HEART: Reveals a regular rate and rhythm, no gallops or rubs. LABORATORY DATA: White blood count 6.0, hemoglobin 12.7, hematocrit 38, potassium 3.7, chloride 101, CO2 of 20, BUN 10, creatinine 0.91, calcium 8.2, and magnesium 2.4. IMPRESSION: 1. A 63-year-old male with pneumonia, improving. 2. Atrial fibrillation, cardioverted. 3. It is noted he had blood cultures, which were negative, no sepsis pattern has been identified. We will plan to continue current treatment, chest x-ray, up walking in the [place] today, . Job ID: [id number]
[2018-11-22] MEDS ORDERED: Potassium Chloride 20 MEQ TAB PO SCH (13:00)
[2018-11-22 14:19] LABS: Platelet Count 189 thou/uL (130-400)
[2018-11-22] MEDS: cefTRIAXone\\ROCEPHIN 2 GM in Sodium Chloride 0.9% 100 ML IVPB SCH (14:57)
[2018-11-22] MEDS: Azithromycin 500 MG in Sodium Chloride 0.9% 250 ML 250 ML IVPB SCH (15:54)
--- NOTE | 2018-11-22 17:28 | PRG ---
DATE OF SERVICE: 11/22/2018 SERVICE: Pulmonary Medicine. INTERVAL HISTORY: The patient is doing fine from respiratory standpoint. His breathing has improved 30% compared to presentation. He did not have any fevers or chills overnight. He continues to cough and brings up a little bit of white phlegm. PHYSICAL EXAMINATION: VITAL SIGNS: Afebrile with a T-max of 100.4 two days ago. Pulse 89, blood pressure 137/80, respirations 18, and saturation 92% on room air. GENERAL: The patient is awake and alert, in no apparent distress. LUNGS: Decent air entry. Dependent crackles are minimal. HEART: Normal rate. Regular. ABDOMEN: Soft, nontender, and nondistended. Bowel sounds are positive. MUSCULOSKELETAL: No cyanosis or clubbing. There is trace 1+ pitting in the bilateral lower extremities. NEUROLOGIC: Grossly nonfocal. LABORATORY DATA: Hemoglobin 12.7. Basic metabolic profile is otherwise unremarkable. White blood cell count is normal. Creatinine 0.9 and gently downtrending. Magnesium 2.4. Potassium 3.7. IMAGING STUDIES: Chest x-ray demonstrates bilateral patchy infiltrates are present. These are distributed throughout bilateral lung bicrh. Small right pleural effusion is also noted. ASSESSMENT: 1. Acute hypoxic respiratory failure, improving. 2. Atrial fibrillation with rapid ventricular response. 3. Community-acquired pneumonia. DISCUSSION AND PLAN: Since the cultures are negative for MRSA, the patient will be de-escalated to simply oral fluoroquinolone. He will need a 7-day course of antibiotic. At this point, he has no further requirements for inpatient Pulmonary or Critical Care opinion, and I will sign off. He will require a repeat chest x-ray in 4 weeks in the outpatient setting to verify these infiltrates have resolved. If his clinical condition deteriorates, please give me a phone call. Job ID: [id number]
[2018-11-22] MEDS ORDERED: Furosemide 20 MG/2 ML VIAL SLOW IVP SCH (17:30)
[2018-11-22] MEDS ORDERED: Flecainide 50 MG TAB PO SCH (17:45)
[2018-11-22] MEDS: Cefdinir 300 MG CAP PO SCH (20:24)
[2018-11-23] MEDS ORDERED: Diltiazem HCl 125 MG, Admixture Fee 1 EACH in Sodium Chloride 0.9% 100 ML IVPB SCH (00:15)
[2018-11-23 05:24] LABS: Anion Gap 11 mmol/L (10-20); BUN (Urea Nitrogen) 10 mg/dL (8.4-25.7); Calc. Creatinine Clearance 150 mL/min (70-130); Calcium 8.2 mg/dL (7.8-10.44); Carbon Dioxide 23 mmol/L (23-31); Chloride 103 mmol/L (98-107); Estimated GFR-MDRD Greater than 90; Glucose 92 mg/dL (80-115); Potassium 3.7 mmol/L (3.5-5.1); Sodium 133 mmol/L (136-145)
--- NOTE | 2018-11-23 08:17 | PRG ---
DATE OF SERVICE: 11/23/2018 SUBJECTIVE: Mr. Garay had been doing well until last night back when he slipped back into atrial fib. He was treated with IV Cardizem, and he has spontaneously converted. The heart rates are now in the mid 50s, but stabilized and regular. OBJECTIVE: VITAL SIGNS: Temperature 98.3, pulse 54, BP 161/89, O2 saturations 92% on 2 L. LUNGS: Bilateral breath sounds without rales, rhonchi, or wheezes. HEART: Reveals a regular rate and rhythm without any murmurs, gallops, or rubs. LABORATORY DATA: Chemistry; sodium is 133, potassium 3.7, chloride 103, CO2 of 23, BUN 10, creatinine 0.8. Blood cultures are negative thus far. IMPRESSION: 1. Pneumonia. 2. Recurrent atrial fibrillation. PLAN: The patient has been started on flecainide per report from the nurses. Cardizem drip has been stopped to liberalize his fluid intake. Job ID: [id number]
[2018-11-23] MEDS: Apixaban 5 MG TAB PO SCH ×2 (08:32→20:21)
[2018-11-23] MEDS: Cefdinir 300 MG CAP PO SCH ×2 (08:33→20:21)
[2018-11-23] MEDS: Azithromycin 250 MG TAB PO SCH (08:33)
[2018-11-23] MEDS: Flecainide 50 MG TAB PO SCH ×2 (08:33→20:21)
[2018-11-24] MEDS: Azithromycin 250 MG TAB PO SCH (09:09)
[2018-11-24] MEDS: Flecainide 50 MG TAB PO SCH (09:09)
[2018-11-24] MEDS: Apixaban 5 MG TAB PO SCH (09:09)
[2018-11-24] MEDS: Cefdinir 300 MG CAP PO SCH (09:09)
--- NOTE | 2018-11-24 10:09 | EKG ---
Test Reason : Blood Pressure : / mmHG Vent. Rate : 119 BPM Atrial Rate : 197 BPM P-R Int : 000 ms QRS Dur : 096 ms QT Int : 328 ms P-R-T Axes : 000 -11 014 degrees QTc Int : 461 ms Atrial fibrillation with rapid ventricular response Abnormal ECG Confirmed by STANISLAW MCCARTHY, ANAYELI ([id number]), script editor EMILIANA CARDONA ([id number]) on 11/24/2018 10:08:52 AM Referred By: Confirmed By:ANAYELI DOVER MD
[2018-11-24 11:31] VITALS: BP 160/92; TEMP 98.2
--- NOTE | 2018-11-25 00:29 | DIS ---
DATE OF ADMISSION: 11/20/2018 DATE OF DISCHARGE: 11/24/2018 ADMITTING DIAGNOSIS: Multifocal multilobar community-acquired pneumonia with development of acute respiratory failure with hypoxia and atrial fibrillation with RVR. CONSULTATIONS: 1. Pulmonology, Dr. Holman and Dr. Killian. 2. Cardiology, Dr. Davenport. Also consultation with Dr. Jones from Nephrology for hyponatremia. HOSPITAL COURSE: The patient is a 63-year-old male, patient of Dr. Alfonso Randall, who came to the hospital because of weakness, was found to have a multifocal community-acquired pneumonia. All cultures were negative, but then he had severe hypoxia with it and developed sepsis. His initial sodium was of 118 and repeat sodium a day or so later was up to 126. The possibility of thought from Dr. Jones is that he does have some stage 3 chronic renal disease and most likely sodium was because of SIADH, possibly associated with pneumonia. As his pneumonia was being treated and now his cultures were negative, Dr. Killian mentioned nothing further needed from a Pulmonary standpoint and recommended him being on a standard fluoroquinolones outpatient dean. On the heart, he had more difficulty in getting his atrial fibrillation under control and couple of days prior to discharge, he was started on flecainide by Dr. Davenport as he had been under Cardizem drip and been on beta blockers and was not keeping it under control. Since he started the flecainide, he has had no further issues. DISCHARGE PLAN: He is to be on Toprol 25, XL version once a day. He will be on flecainide 50 mg twice a day and also be on Eliquis 5 mg twice a day due to the atrial fibrillation, and will also be on Levaquin 500 once a day for just another 5 days. He will need to follow up with Dr. Randall early next week. He will need to follow up with Dr. Davenport in about 3-4 weeks. All the prescriptions are on the chart at the time of discharge, and the patient had no further questions, his is in the room with him. Job ID: [id number]
--- NOTE | 2018-11-27 22:34 | EKG ---
Test Reason : POST MAHSA/CARDIOVERSI Blood Pressure : / mmHG Vent. Rate : 079 BPM Atrial Rate : 079 BPM P-R Int : 184 ms QRS Dur : 096 ms QT Int : 378 ms P-R-T Axes : 020 -18 036 degrees QTc Int : 433 ms Sinus rhythm with Premature atrial complexes Possible Left atrial enlargement Incomplete right bundle branch block Borderline ECG When compared with ECG of 19-NOV-2018 23:37, Sinus rhythm has replaced Atrial fibrillation Vent. rate has decreased BY 40 BPM Confirmed by Emelia FERNANDO ([id number]) on 11/27/2018 10:33:49 PM Referred By: KONG/GUILLERMINA Confirmed By:Emelia FERNANDO
== END 2018-11-24 11:50 | disposition home or self-care (01) | DRG 871 ==
LOC: ERS 23:20 → ERHOLD 11-20 01:59 → 2NO 11-20 12:12
PROVIDERS: ADMIT Family Medicine; ATTEND Family Medicine
PROC: B24BZZ4 Ultrasonography of Heart with Aorta, Transesophageal (ICD-10-PCS; principal; 2018-11-21)
PROC: 5A2204Z Restoration of Cardiac Rhythm, Single (ICD-10-PCS; 2018-11-21)
DX: A41.9 Sepsis, unspecified organism (principal); J18.1 Lobar pneumonia, unspecified organism; J96.01 Acute respiratory failure with hypoxia; E22.2 Syndrome of inappropriate secretion of antidiuretic hormone; N17.9 Acute kidney failure, unspecified; I48.91 Unspecified atrial fibrillation; K21.9 Gastro-esophageal reflux disease without esophagitis; J45.909 Unspecified asthma, uncomplicated; N18.3 Chronic kidney disease, stage 3 (moderate); I12.9 Hypertensive chronic kidney disease with stage 1 through stage 4 chronic kidney disease, or unspecified chronic kidney disease; E87.6 Hypokalemia; I08.3 Combined rheumatic disorders of mitral, aortic and tricuspid valves; E66.9 Obesity, unspecified; Z90.49 Acquired absence of other specified parts of digestive tract; Z79.899 Other long term (current) drug therapy; Z68.35 Body mass index [BMI] 35.0-35.9, adult
CPT/HCPCS: 36415; 36416; 71045; 71046; 71275; 80048; 80053; 80202; 81003; 81015; 82550; 82565; 83605; 83690; 83735; 83880; 84443; 84484; 85014; 85018; 85025; 85049; 85379; 87040; 87081; 87430; 87804; 92960; 93005; 93010; 93306; 93312; 94640; 94760; 96361; 96365; 96367; 96368; 96372; 96375; 96376; J0456; J0696; J1160; J1650; J1940; J1956; J2543; J2704; J3370; J3475; J3490; J7050; J7620; Q9967

== ENCOUNTER 2018-12-12 09:39 | Outpatient (CLI) | payer MEDICARE, BC ==
--- NOTE | 2018-12-12 09:52 | RAD ---
EXAM: Chest 2 views: HISTORY: Follow-up pneumonia COMPARISON: 11/22/2018 FINDINGS: Heart size:Within normal limits. Lungs:Patient noted left lung pneumonia has resolved. Atherosclerotic changes of the aorta. Resolution of the previously noted right pleural effusion. No significant new process. IMPRESSION: Atherosclerosis of the aorta. No acute intrathoracic disease.
== END 2018-12-12 09:40 | disposition home or self-care (01) ==
LOC: BICRAD 09:39
PROVIDERS: ATTEND Family Medicine
DX: J18.9 Pneumonia, unspecified organism (principal); I70.0 Atherosclerosis of aorta
CPT/HCPCS: 71046

== ENCOUNTER 2019-02-07 06:31 | Outpatient (CLI) | payer MEDICARE, BC ==
[2019-02-07 11:43] LABS: #Eosinphils 0.2 thou/uL (0.0-0.7); #Lymphocytes 1.5 thou/uL (1.20-3.40); #Monocytes 0.5 thou/uL (0.11-0.59); #Neutrophils 4.4 thou/uL (1.40-6.50); %Basophils 0.5 % (0.0-1.0); %Eosinophils 3.1 % (0.0-10.0); %Lymphocytes 22.9 % (21.0-51.0); %Monocytes 7.3 % (0.0-10.0); %Neutrophils 66.3 % (42.0-75.0); Hemoglobin 15.2 g/dL (14.0-18.0); Mean Corpuscular HGB CONC 32.4 g/dL (32.0-36.0); Mean Corpuscular Hemoglobin 29.8 pg (27.0-31.0); Mean Corpuscular Volume 92.1 fL (78.0-98.0); Platelet Count 169 thou/uL (130-400); RBC Distribution Width 13.1 % (11.5-14.5); Red Blood Cell (RBC) Count 5.11 mill/uL (4.70-6.10); White Blood Cell (WBC) Count 6.7 thou/uL (4.8-10.8)
[2019-02-07 12:06] LABS: ALT (SGPT) 17 U/L (8-55); AST (SGOT) 18 U/L (5-34); Albumin 4.2 g/dL (3.4-4.8); Alkaline Phosphatase 57 U/L (40-110); Anion Gap 11 mmol/L (10-20); BUN (Urea Nitrogen) 16 mg/dL (8.4-25.7); Bilirubin, Total 1.3 mg/dL (0.2-1.2); Calc. Creatinine Clearance 0 mL/min (70-130); Calcium 9.2 mg/dL (7.8-10.44); Carbon Dioxide 27 mmol/L (23-31); Chloride 106 mmol/L (98-107); Estimated GFR-MDRD 65; Globulin 2.6 g/dL (2.4-3.5); Glucose 84 mg/dL (80-115); Potassium 4.5 mmol/L (3.5-5.1); Protein, Total 6.8 g/dL (5.8-8.1); Sodium 139 mmol/L (136-145)
== END 2019-02-07 06:32 | disposition home or self-care (01) ==
LOC: LABBT 06:31
PROVIDERS: ATTEND Internal Medicine Cardiovascular Disease
DX: Z01.812 Encounter for preprocedural laboratory examination (principal); R07.9 Chest pain, unspecified
CPT/HCPCS: 80053; 85025

== ENCOUNTER 2019-02-12 05:46 | Day surgery (SDC) | payer MEDICARE, BC ==
[2019-02-07 10:40] VITALS: BMI 18.1
[2019-02-12] MEDS ORDERED: Lidocaine 1% (PF) 30 ML VIAL ONE (06:40)
[2019-02-12] MEDS ORDERED: Verapamil 5 MG/2 ML VIAL ONE (06:41)
[2019-02-12] MEDS ORDERED: Heparin 10,000 UNITS/1 ML VIAL ONE (06:41)
[2019-02-12] MEDS ORDERED: Nitroglycerin 100MG/250ML BOT 250 ML ONE (06:41)
[2019-02-12] MEDS ORDERED: Fentanyl 100 MCG/2 ML VIAL ONE (07:18)
[2019-02-12] MEDS ORDERED: Midazolam HCl 2 mg/2 ml Vial ONE (07:18)
[2019-02-12] MEDS ORDERED: Iopamidol 370 76% 100 ML VIAL ONE (15:04)
== END 2019-02-12 13:43 | disposition home or self-care (01) ==
LOC: CCL 05:46
PROVIDERS: ATTEND Internal Medicine Cardiovascular Disease
PROC: 4A023N7 Measurement of Cardiac Sampling and Pressure, Left Heart, Percutaneous Approach (ICD-10-PCS; principal; 2019-02-12)
PROC: B2111ZZ Fluoroscopy of Multiple Coronary Arteries using Low Osmolar Contrast (ICD-10-PCS; 2019-02-12)
DX: R07.89 Other chest pain (principal); R94.39 Abnormal result of other cardiovascular function study; I10 Essential (primary) hypertension; I48.0 Paroxysmal atrial fibrillation; K21.9 Gastro-esophageal reflux disease without esophagitis; J45.909 Unspecified asthma, uncomplicated; Z79.01 Long term (current) use of anticoagulants; Z79.899 Other long term (current) drug therapy
CPT/HCPCS: 93458; 99152; C1769; J1644; J2001; J2250; J3010; Q9967

== ENCOUNTER 2019-04-10 19:09 | Inpatient (IN) | payer MEDICARE, BC ==
[2019-04-10] MEDS ORDERED: Nitroglycerin 2% Ointment 1 INCH/1 GM Packet ONE (19:24)
[2019-04-10] MEDS ORDERED: Aspirin 325 MG TAB ONE (19:24)
[2019-04-10] MEDS ORDERED: Aspirin Chewable 81 MG TAB ONE (19:26)
[2019-04-10 19:30] LABS: #Eosinphils 0.3 thou/uL (0.0-0.7); #Lymphocytes 1.5 thou/uL (1.20-3.40); #Monocytes 0.6 thou/uL (0.11-0.59); #Neutrophils 6.8 thou/uL (1.40-6.50); %Basophils 0.3 % (0.0-1.0); %Eosinophils 3.4 % (0.0-10.0); %Lymphocytes 16.1 % (21.0-51.0); %Monocytes 6.2 % (0.0-10.0); %Neutrophils 74.1 % (42.0-75.0); Hemoglobin 16.2 g/dL (14.0-18.0); Mean Corpuscular HGB CONC 33.1 g/dL (32.0-36.0); Mean Corpuscular Hemoglobin 29.5 pg (27.0-31.0); Mean Corpuscular Volume 89.1 fL (78.0-98.0); Mean Platelet Volume 7.4 fL (7.4-10.4); Platelet Count 179 thou/uL (130-400); RBC Distribution Width 12.1 % (11.5-14.5); Red Blood Cell (RBC) Count 5.48 mill/uL (4.70-6.10); White Blood Cell (WBC) Count 9.1 thou/uL (4.8-10.8)
--- NOTE | 2019-04-10 19:34 | RAD ---
EXAM: Portable chest PROVIDED CLINICAL HISTORY: Chest pain COMPARISON: None FINDINGS: Cardiac and mediastinal silhouette is within normal limits. No focal consolidation, pleural fluid or pneumothorax evident. IMPRESSION: No evidence for an acute cardiopulmonary process.
[2019-04-10 19:53] LABS: ALT (SGPT) 18 U/L (8-55); AST (SGOT) 20 U/L (5-34); Albumin 4.4 g/dL (3.4-4.8); Alkaline Phosphatase 67 U/L (40-110); Anion Gap 10 mmol/L (10-20); BUN (Urea Nitrogen) 17 mg/dL (8.4-25.7); Bilirubin, Total 0.8 mg/dL (0.2-1.2); CK (CPK) 157 U/L (30-200); Calc. Creatinine Clearance 0 mL/min (70-130); Calcium 9.3 mg/dL (7.8-10.44); Carbon Dioxide 28 mmol/L (23-31); Chloride 103 mmol/L (98-107); Estimated GFR-MDRD 64; Globulin 2.9 g/dL (2.4-3.5); Glucose 93 mg/dL (80-115); Lipase 23 U/L (8-78); Potassium 3.8 mmol/L (3.5-5.1); Protein, Total 7.3 g/dL (5.8-8.1); Sodium 137 mmol/L (136-145)
[2019-04-10 20:17] LABS: CKMB 3.1 ng/mL (0-6.6)
--- NOTE | 2019-04-10 22:42 | PDOC.HHP ---
Hospitalist HPI - History of Present Illness Chest pain History of Present Illness: Patient is a 64 year old male with PMH GERD, HTN, asthma, paroxysmal afib who presents to ED for chest pain L sided beginning at 4pm today, while walking, also has some shortness of breath, radiation to L arm, not currently having pain. He reports lasted about 2 hours, was a pressure sensation, never had this before. He checked his heart rate and was 80-90 with no afib that he could tell at home. In ED, given ASA, nitro, IVF, EKG with 1st degree AVB, no ST changes of acuity. Troponin elevated to 0.09, CXR without acute findings, [facility] hospitalist service consulted for admission, I discussed with Dr Adamson. Of note , patient blood pressure on arrival was 198/93, improved to 114/74 with nitropatch. Records reviewed, patient was diagnosed with atrial fibrillation in 11/2018, saw Dr Blackman of cardiology as outpatient in 01/2019 for HTN and afib, CHADSVASC > 2, patient on flecanide/metoprolol/eliquis for this as well as PPI, breo, losartan. During that exam, abnormal stress test discussed with patient and cath recommended, left heart cath performed on 02/12/19 with EF 55%, no significant CAD. During the previous admission, patient was diagnosed with CAP as well, had significant hyponatremia in the 110-120 range which is now resolved. Nephrology was consulted at that time Dr Jones. Echo that admission with preserved EF and mild AR and TR. Hospitalist ROS - Review of Systems Constitutional: denies: fever, chills, sweats, weakness, malaise, other Eyes: denies: pain, vision change, conjunctivae inflammation, eyelid inflammation, redness, other ENT: denies: ear pain, ear discharge, nose pain, nose discharge, nose congestion , mouth pain, mouth swelling, throat pain, throat swelling, other Respiratory: denies: cough, dry, shortness of breath, hemoptysis, SOB with excertion, pleuritic pain, sputum, wheezing, other Cardiovascular: reports: chest pain. denies: palpitations, orthopnea, paroxysmal noc. dyspnea, edema, light headedness, other Gastrointestinal: denies: nausea, vomiting, abdominal pain, diarrhea, constipation, melena, hematochezia, other Genitourinary: denies: dysuria, frequency, incontinence, hematuria, retention, other Musculoskeletal: denies: neck pain, shoulder pain, arm pain, back pain, hand pain, leg pain, foot pain, other Skin: denies: rash, lesions, julio césar, bruising, other Neurological: denies: weakness, numbness, incoordination, change in speech, confusion, seizures, other Hospitalist History - Past Medical History Other Medical History: GERD asthma HTN - Past Surgical History Past Surgical History: reports: Appendectomy - Family History Family History: reports: no pertinent history - Social History Other Social History: Patient drinks socially, every week, Patient denies drug use, Patient has no smoking history - Exam General Appearance: NAD, awake alert Eye: PERRL, anicteric sclera ENT: normocephalic atraumatic, no oropharyngeal lesions, moist mucosa Neck: supple, symmetric, no JVD, no thyromegaly, no lymphadenopathy, no carotid bruit Heart: irregular Respiratory: CTAB, no wheezes, no rales, no ronchi, normal chest expansion, no tachypnea, normal percussion Gastrointestinal: soft, non-tender, non-distended, normal bowel sounds, no palpable masses, no hepatomegaly, no splenomegaly, no bruit Extremities: no cyanosis, no clubbing, no edema Skin: normal turgor, no lesions, no rashes Neurological: cranial nerve grossly intact, normal sensation to touch, no weakness, no focal deficits, no new deficit Musculoskeletal: normal tone, normal strength, no muscle wasting Psychiatric: normal affect, normal behavior, A&O x 3 Hospitalist Results - Labs Result Diagrams: 04/10/19 19:18 04/10/19 19:18 Lab results: WBC 9.1 thou/uL (4.8-10.8) 04/10/19 19:18 Hgb 16.2 g/dL (14.0-18.0) 04/10/19 19:18 Hct 48.8 % (42.0-52.0) 04/10/19 19:18 MCV 89.1 fL (78.0-98.0) 04/10/19 19:18 Plt Count 179 thou/uL (130-400) 04/10/19 19:18 Neutrophils % 74.1 % (42.0-75.0) 04/10/19 19:18 Sodium 137 mmol/L (136-145) 04/10/19 19:18 Potassium 3.8 mmol/L (3.5-5.1) 04/10/19 19:18 Chloride 103 mmol/L (98-107) 04/10/19 19:18 Carbon Dioxide 28 mmol/L (23-31) 04/10/19 19:18 BUN 17 mg/dL (8.4-25.7) 04/10/19 19:18 Creatinine 1.15 mg/dL (0.7-1.3) 04/10/19 19:18 Glucose 93 mg/dL (80-115) 04/10/19 19:18 Calcium 9.3 mg/dL (7.8-10.44) 04/10/19 19:18 Total Bilirubin 0.8 mg/dL (0.2-1.2) 04/10/19 19:18 AST 20 U/L (5-34) 04/10/19 19:18 ALT 18 U/L (8-55) 04/10/19 19:18 Alkaline Phosphatase 67 U/L (40-110) 04/10/19 19:18 Creatine Kinase 157 U/L (30-200) 04/10/19 19:18 CK-MB (CK-2) 3.1 ng/mL (0-6.6) 04/10/19 19:24 Troponin I 0.093 ng/mL (< 0.028) H 04/10/19 19:24 B-Natriuretic Peptide 60.9 pg/mL (0-100) 04/10/19 19:18 Serum Total Protein 7.3 g/dL (5.8-8.1) 04/10/19 19:18 Albumin 4.4 g/dL (3.4-4.8) 04/10/19 19:18 Lipase 23 U/L (8-78) 04/10/19 19:18 Additional comment: BP: 114/74 Pulse: 58 Resp: 18 Pain: 2 O2 sat: 99 Time: 04/10/2019 22:00. - EKG Interpretation EKG: EKG reviewed, sinus, 65 bpm, 1st degree avb, no acute ST changes Hospitalist H&P A/P - Plan Plan: Patient is a 64 year old male with PMH GERD, afib, HTN, asthma admitted for chest pain. # chest pain, elevated troponin, history of atrial fibrillation - typical features, left heart cath report from 02/12/19 reviewed with EF 55%, no significant CAD, echo from that time with mild AR/TR and preserved EF, patient reports rate checked and was not rapid with no afib at that time, BP significantly elevated on admission as potential cause - admit to telemetry, obs status - trend enzymes - consult Dr Blackman - continue home medications including eliquis, flecanide, metoprolol for afib # HTN urgency - perhaps cause of chest pain and troponin elevation, per patient has gone up recently - continue losartan, increase dose to 100mg daily - continue nitropatch for short term relief - continue flecanide and metoprolol at home doses - PRN hydralazine and clonidine for SBP > 160 # GERD - PPI # asthma - no wheezing on my exam, PRN duoneb will be made available
[2019-04-10] MEDS ORDERED: hydrALAZINE 20 MG/ML VIAL SLOW IVP PRN (23:00)
[2019-04-10] MEDS ORDERED: Ondansetron PF 4 MG/2 ML Vial IVP PRN (23:00)
[2019-04-10] MEDS ORDERED: Morphine 2 MG/ML SYRINGE SLOW IVP PRN (23:00)
[2019-04-10] MEDS ORDERED: Promethazine HCl 12.5 MG in Sodium Chloride 0.9% 50 ML IVPB PRN (23:00)
[2019-04-10] MEDS ORDERED: cloNIDine 0.1 MG TAB PO PRN (23:00)
[2019-04-10] MEDS ORDERED: Senokot S 8.6-50 MG TAB PO PRN (23:03)
[2019-04-10] MEDS ORDERED: Bisacodyl 5 MG TAB PO PRN (23:03)
[2019-04-10] MEDS ORDERED: HYDROcodone/Acetaminophen 5/325 mg Tablet PO PRN (23:03)
[2019-04-10 23:06] LABS: Troponin I 0.093 ng/mL (< 0.028)
[2019-04-11 02:35] LABS: Troponin I 0.168 ng/mL (< 0.028)
[2019-04-11] MEDS ORDERED: Acetaminophen 325 MG TAB ONE ×2 (03:47→14:39)
[2019-04-11] MEDS ORDERED: Nitroglycerin 2% Ointment 1 INCH/1 GM Packet ONE ×2 (03:47→12:58)
[2019-04-11] MEDS: Nitroglycerin 2% Ointment 1 INCH/1 GM Packet TOP SCH ×3 (03:55→20:46)
[2019-04-11 04:36] LABS: Anion Gap 10 mmol/L (10-20); BUN (Urea Nitrogen) 15 mg/dL (8.4-25.7); Calc. Creatinine Clearance 0 mL/min (70-130); Calcium 8.8 mg/dL (7.8-10.44); Carbon Dioxide 26 mmol/L (23-31); Chloride 106 mmol/L (98-107); Estimated GFR-MDRD 77; Glucose 88 mg/dL (80-115); Potassium 4.4 mmol/L (3.5-5.1); Sodium 138 mmol/L (136-145)
[2019-04-11] MEDS: Mometasone/Formoterol 120 PUFF INHALER INH SCH ×2 (07:24→18:41)
[2019-04-11] MEDS ORDERED: Apixaban 5 MG TAB PO SCH (09:00)
[2019-04-11] MEDS ORDERED: Non-Formulary Item 1 EACH (Losartan Potassium [Losartan Potassium] 50 MG) PO SCH (09:00)
[2019-04-11] MEDS: Losartan 25 MG TAB PO SCH (10:00)
[2019-04-11] MEDS: Flecainide 50 MG TAB PO SCH ×2 (10:01→20:47)
[2019-04-11 10:46] LABS: Troponin I 1.339 ng/mL (< 0.028)
[2019-04-11] MEDS: Acetaminophen 325 MG TAB PO PRN (14:40)
[2019-04-11 16:15] VITALS: BMI 32.8
--- NOTE | 2019-04-11 17:01 | PDOC.HOSPP ---
- Subjective Encounter Date: 04/11/19 Encounter Time: 12:45 Subjective: has left lower chest area pain off and on, its more of a sharp pain lasting few seconds no sob or cough or palpitations he had recent f/u with Ms.Ellen DONNELLY for on Mar - Objective Vital Signs & Weight: Vital Signs (12 hours) Temp Pulse Resp BP Pulse Ox 04/11/19 15:10 97.9 F 51 L 18 147/87 H 95 04/11/19 13:02 97.9 F 52 L 15 141/89 H 98 04/11/19 08:38 97.8 F 61 16 121/78 98 Weight Weight 235 lb 14.32 oz Result Diagrams: 04/10/19 19:18 04/11/19 04:03 Hospitalist ROS - Medication Medications: Active Medications Generic Name Dose Route Start Last Admin Trade Name Freq PRN Reason Stop Dose Admin Acetaminophen 650 mg 04/10/19 23:03 04/11/19 14:40 Tylenol PO 650 mg Q4H PRN Administration Headache/Fever/Mild Pain (1-3) Apixaban 5 mg 04/11/19 09:00 04/11/19 10:00 Eliquis PO 5 mg BID FABIENNE Administration Flecainide Acetate 50 mg 04/11/19 09:00 04/11/19 10:01 Tambocor PO 50 mg BID FABIENNE Administration Losartan Potassium 100 mg 04/11/19 09:00 04/11/19 10:00 Cozaar PO 100 mg DAILY FABIENNE Administration Metoprolol Succinate 25 mg 04/11/19 09:00 04/11/19 10:00 Toprol Xl PO 25 mg DAILY FABIENNE Administration Mometasone Furoate/Formoterol Fumar 2 puff 04/11/19 06:30 04/11/19 07:24 Dulera 100 Mcg/5 Mcg Inhaler INH 2 puff BID-RT FABIENNE Administration Nitroglycerin 1 inch 04/11/19 04:00 04/11/19 12:58 Nitro-Bid 2% Ointment TOP 1 inch Q8H FABIENNE Administration - Exam General Appearance: awake alert Eye: PERRL, anicteric sclera ENT: no oropharyngeal lesions, moist mucosa Neck: supple, no JVD Heart: no murmur, no gallops Respiratory: no wheezes, no rales Gastrointestinal: soft, non-tender, non-distended, normal bowel sounds Extremities: no cyanosis, no edema Neurological: cranial nerve grossly intact, no focal deficits Psychiatric: normal affect, A&O x 3 Hosp A/P (1) Chest pain Code(s): R07.9 - CHEST PAIN, UNSPECIFIED Status: Acute (2) NSTEMI (non-ST elevated myocardial infarction) Code(s): I21.4 - NON-ST ELEVATION (NSTEMI) MYOCARDIAL INFARCTION Status: Suspected (3) HTN (hypertension) Code(s): I10 - ESSENTIAL (PRIMARY) HYPERTENSION Status: Chronic Qualifiers: Hypertension type: essential hypertension Qualified Code(s): I10 - Essential (primary) hypertension (4) Paroxysmal A-fib Code(s): I48.0 - PAROXYSMAL ATRIAL FIBRILLATION Status: Chronic (5) GERD (gastroesophageal reflux disease) Code(s): K21.9 - GASTRO-ESOPHAGEAL REFLUX DISEASE WITHOUT ESOPHAGITIS Status: Chronic Qualifiers: Esophagitis presence: esophagitis presence not specified Qualified Code(s) : K21.9 - Gastro-esophageal reflux disease without esophagitis (6) H/O extrinsic asthma Code(s): Z87.09 - PERSONAL HISTORY OF OTHER DISEASES OF THE RESPIRATORY SYSTEM Status: Chronic (7) Obesity (BMI 30.0-34.9) Code(s): E66.9 - OBESITY, UNSPECIFIED Status: Chronic - Plan had trop of upto 1.3 with chest pain, no gross changes on telemetry d/w , likely cath had prior cath in nov 2018 with no sig stenosis continue flecainide, cozaar, toprol xl, hold eliquis for now dc plan per cardio adv hemostable
[2019-04-11 18:27] LABS: Troponin I 2.412 ng/mL (< 0.028)
[2019-04-11] MEDS ORDERED: Aspirin Chewable 81 MG TAB PO SCH (18:33)
[2019-04-11] MEDS ORDERED: Communication Order-Pharmacy FS SCH (19:45)
[2019-04-11] MEDS: Sodium Chloride 0.9% 1,000 ML IV SCH (20:47)
[2019-04-11] MEDS ORDERED: Enoxaparin Sodium 100 MG/ML SYRINGE SC SCH (21:00)
[2019-04-12] MEDS: Nitroglycerin 2% Ointment 1 INCH/1 GM Packet TOP SCH ×3 (05:22→19:58)
[2019-04-12] MEDS: Sodium Chloride 0.9% 1,000 ML IV SCH (05:24)
[2019-04-12] MEDS: Acetaminophen 325 MG TAB PO PRN (05:55)
[2019-04-12] MEDS: Mometasone/Formoterol 120 PUFF INHALER INH SCH ×2 (07:01→18:59)
[2019-04-12] MEDS: Aspirin 325 mg Enteric Coated Tablet PO SCH (08:22)
[2019-04-12] MEDS: Losartan 25 MG TAB PO SCH (08:22)
[2019-04-12] MEDS: Flecainide 50 MG TAB PO SCH ×2 (08:22→19:58)
[2019-04-12] MEDS ORDERED: Iopamidol 370 76% 100 ML VIAL ONE (09:58)
[2019-04-12] MEDS ORDERED: Heparin (Artline) 1,000 ML ONE (12:13)
[2019-04-12] MEDS ORDERED: Nitroglycerin 100MG/250ML BOT 250 ML ONE (12:13)
[2019-04-12] MEDS ORDERED: Verapamil 5 MG/2 ML VIAL ONE (12:13)
[2019-04-12] MEDS ORDERED: Heparin 10,000 UNITS/1 ML VIAL ONE (12:13)
[2019-04-12] MEDS ORDERED: Midazolam HCl 2 mg/2 ml Vial ONE (12:45)
[2019-04-12] MEDS ORDERED: Fentanyl 100 MCG/2 ML VIAL ONE (12:45)
--- NOTE | 2019-04-12 12:55 | PDOC.HOSPP ---
- Subjective Encounter Date: 04/12/19 Encounter Time: 10:00 Subjective: no chest pain or palp at bedside is npo for cath this afternoon - Objective Vital Signs & Weight: Vital Signs (12 hours) Temp Pulse Resp BP BP Pulse Ox 04/12/19 11:43 98.5 F 60 16 155/79 H 99 04/12/19 07:00 98.9 F 54 L 16 166/84 H 99 04/12/19 03:01 98 F 59 L 16 134/88 94 L Weight Weight 238 lb 15.697 oz I&O: 04/11/19 04/12/19 04/13/19 06:59 06:59 06:59 Intake Total 360 Balance 360 Result Diagrams: 04/10/19 19:18 04/11/19 04:03 Hospitalist ROS - Medication Medications: Active Medications Generic Name Dose Route Start Last Admin Trade Name Freq PRN Reason Stop Dose Admin Acetaminophen 650 mg 04/10/19 23:03 04/12/19 05:55 Tylenol PO 650 mg Q4H PRN Administration Headache/Fever/Mild Pain (1-3) Hydrocodone Bitart/Acetaminophen 1 tab 04/10/19 23:03 04/11/19 20:47 [place] 5/325 PO 1 tab Q4H PRN Administration Moderate Pain (4-6) Aspirin 325 mg 04/12/19 09:00 04/12/19 08:22 Ecotrin PO 325 mg DAILY FABIENNE Administration Flecainide Acetate 50 mg 04/11/19 09:00 04/12/19 08:22 Tambocor PO 50 mg BID FABIENNE Administration Sodium Chloride 1,000 mls @ 100 mls/hr 04/11/19 20:00 04/12/19 05:24 Normal Saline 0.9% IV 1,000 mls .Q10H FABIENNE Administration Losartan Potassium 100 mg 04/11/19 09:00 04/12/19 08:22 Cozaar PO 100 mg DAILY FABIENNE Administration Metoprolol Succinate 25 mg 04/11/19 09:00 04/12/19 08:23 Toprol Xl PO Not Given DAILY FABIENNE Mometasone Furoate/Formoterol Fumar 2 puff 04/11/19 06:30 04/12/19 07:01 Dulera 100 Mcg/5 Mcg Inhaler INH 2 puff BID-RT FABIENNE Administration Nitroglycerin 1 inch 04/11/19 04:00 04/12/19 05:22 Nitro-Bid 2% Ointment TOP 1 inch Q8H FABIENNE Administration Pantoprazole Sodium 40 mg 04/12/19 09:00 04/12/19 08:23 Protonix PO 40 mg DAILY FABIENNE Administration - Exam General Appearance: awake alert Eye: PERRL, anicteric sclera ENT: no oropharyngeal lesions, moist mucosa Neck: supple, no JVD Heart: RRR, no murmur Respiratory: no wheezes, no rales Gastrointestinal: soft, non-tender, non-distended, normal bowel sounds Extremities: no cyanosis, no edema Neurological: cranial nerve grossly intact, no focal deficits Psychiatric: normal affect, A&O x 3 Hosp A/P (1) Chest pain Code(s): R07.9 - CHEST PAIN, UNSPECIFIED Status: Acute (2) NSTEMI (non-ST elevated myocardial infarction) Code(s): I21.4 - NON-ST ELEVATION (NSTEMI) MYOCARDIAL INFARCTION Status: Suspected (3) HTN (hypertension) Code(s): I10 - ESSENTIAL (PRIMARY) HYPERTENSION Status: Chronic Qualifiers: Hypertension type: essential hypertension Qualified Code(s): I10 - Essential (primary) hypertension (4) Paroxysmal A-fib Code(s): I48.0 - PAROXYSMAL ATRIAL FIBRILLATION Status: Chronic (5) GERD (gastroesophageal reflux disease) Code(s): K21.9 - GASTRO-ESOPHAGEAL REFLUX DISEASE WITHOUT ESOPHAGITIS Status: Chronic Qualifiers: Esophagitis presence: esophagitis presence not specified Qualified Code(s) : K21.9 - Gastro-esophageal reflux disease without esophagitis (6) H/O extrinsic asthma Code(s): Z87.09 - PERSONAL HISTORY OF OTHER DISEASES OF THE RESPIRATORY SYSTEM Status: Chronic (7) Obesity (BMI 30.0-34.9) Code(s): E66.9 - OBESITY, UNSPECIFIED Status: Chronic - Plan had trop of upto 2.3 with chest pain, no gross changes on telemetry cath this afternoon, await results had prior cath in nov 2018 with no sig stenosis continue flecainide, cozaar, toprol xl held this am due to HR in the 50's, hold eliquis for now dc plan per cardio adv hemostable
[2019-04-12] MEDS ORDERED: Sodium Chloride 0.9% 200 ML IV PRN (13:00)
[2019-04-12] MEDS ORDERED: Acetaminophen/Codeine 30-300mg Tablet PO PRN (13:00)
[2019-04-12] MEDS ORDERED: Sodium Chloride 0.9% 500 ML IV SCH (13:15)
--- NOTE | 2019-04-12 15:27 | CON ---
DATE OF CONSULTATION: 04/11/2019 REASON FOR CONSULTATION: Non-STEMI. PRIMARY BRIM STITCHER: Sunny Blackman MD HISTORY OF PRESENT ILLNESS: Mr. Garay is a very pleasant 64-year-old white gentleman, who comes to the hospital for chest pain. He tells me that yesterday he was walking. He does a 3-mile walk every day and he started notice chest pain and chest tightness in the midsternal area. The pain would get worse with walking, would get better only with rest. He got back home and the chest pain remained as it did not go away, so he checked his blood pressure, it was in 190s, so he decided to go to the ER for further evaluation and care. He was found to have. . PAST MEDICAL HISTORY: 1. Hypertension. 2. GERD. 3. History of asthma. PAST SURGICAL HISTORY: 1. Heart catheterization recently 2 months ago. 2. Orthopedic surgery. OUTPATIENT MEDICATIONS: 1. Losartan 50 mg a day. 2. Omeprazole 40 mg a day. ALLERGIES: NO KNOWN DRUG ALLERGIES. SOCIAL HISTORY: No tobacco or drugs. Social alcohol use. FAMILY HISTORY: Noncontributory. REVIEW OF SYSTEMS: A 12-point review of systems was negative unless stated in the history of present illness. PHYSICAL EXAMINATION: VITAL SIGNS: Temperature 97.9, pulse 51, respiratory rate 18, saturations 95% on room air, and blood pressure 147/87. GENERAL: Awake, alert and oriented x3, in no distress. HEENT: Normocephalic and atraumatic. NECK: Supple. LUNGS: Clear. CARDIOVASCULAR: S1 and S2. No S3 or S4. No murmurs. ABDOMEN: Soft. Positive bowel sounds. EXTREMITIES: No edema. SKIN: Warm and dry. LABORATORY DATA: Laboratory work was reviewed. CBC with a white count of 9, hemoglobin 16, hematocrit 48, and platelet count of 179. Chemistries were unremarkable. Troponin is 0.09, 0.16, 0.37, 1.3 and 2.4. Chest x-ray was reviewed. ASSESSMENT/PLAN: 1. [id number] myocardial infarction. 2. Recent heart catheterization showing normal coronaries. PLAN: Concern for either coronary dissection from high blood pressure or just a hypertensive emergency. Either way, the only way to rule this out is with a heart catheterization. We will plan on doing a repeat heart catheterization. We spoke at length with risks and benefits of the procedure. Risks included, but not limited to stroke, [place], , bleeding, need for blood transfusion, limb loss, organ loss. The patient understands, verbalized understanding of this and agrees to proceed. Drug-eluting stents if needed. Right radial access. He had normal procedure from the right radial last visit. Further recommendations per results of coronary angiogram. We will do this in the morning. Job ID: [id number]
[2019-04-13] MEDS: Nitroglycerin 2% Ointment 1 INCH/1 GM Packet TOP SCH (05:11)
[2019-04-13 07:29] VITALS: TEMP 98
[2019-04-13] MEDS: Mometasone/Formoterol 120 PUFF INHALER INH SCH (07:29)
[2019-04-13] MEDS: Flecainide 50 MG TAB PO SCH (08:39)
[2019-04-13] MEDS: Aspirin 325 mg Enteric Coated Tablet PO SCH (08:39)
[2019-04-13] MEDS: Losartan 25 MG TAB PO SCH (08:40)
[2019-04-13] MEDS ORDERED: Amlodipine 5 MG TAB PO SCH (09:00)
[2019-04-13 10:45] VITALS: BP 165/97
--- NOTE | 2019-04-15 10:32 | DIS ---
DATE OF ADMISSION: 04/11/2019 DATE OF DISCHARGE: 04/13/2019 PRIMARY CARE PHYSICIAN: Alfonso Randall MD DISCHARGE DISPOSITION: To home. PRIMARY DISCHARGE DIAGNOSES: Non-ST elevation myocardial infarction type 2 with normal coronaries on angiogram, chest pain, hypertension, paroxysmal atrial fibrillation, gastroesophageal reflux disease, history of asthma, and obesity. PROCEDURES DONE DURING HOSPITALIZATION: Chest x-ray done on the day of admission showed no acute cardiopulmonary abnormality. Coronary angiogram done by Dr. Schulte on 04/12/2019 showed no evidence of coronary artery disease. Echo with 2D Doppler showed an ejection fraction of 60% to 65%, grade 1/3 diastolic dysfunction, mildly dilated left atrium, aortic root was 4.3 cm. H and H 16 and 48, platelet count 179, and MCV is 89. Troponin I was abnormal peaking up to 2.41. BUN 15 and creatinine 0.9. CK-MB 3.1 and BNP 60. DISCHARGE MEDICATIONS: 1. Eliquis 5 mg twice daily. 2. Flecainide 50 mg twice daily. 3. Breo Ellipta inhaler daily. 4. Toprol-XL 25 mg daily. 5. Omeprazole 40 mg daily. 6. Norvasc 2.5 mg daily. 7. Cozaar 100 mg daily. ALLERGIES: NO KNOWN DRUG ALLERGIES. INPATIENT CONSULT: Dr. Schulte for Cardiology. DISCHARGE PLAN: The patient to follow up with his primary care physician, Dr. Alfonso Randall on 04/19/2019 at 2:15 p.m. He also needs to see Dr. Blackman, his head teller in 2 weeks. BRIEF COURSE DURING HOSPITALIZATION: The patient initially came to the ER with complaints of chest pain. He had hypertensive urgency on arrival with blood pressures of 198/93. The patient had abnormal troponin. He has had serial troponins done, which peaked up to 2.1. In view of this, the patient has had Cardiology consultation. He has had a prior coronary angiogram done in February, which showed no significant coronary artery disease. The patient was taken for repeat cardiac cath this admission and did not have any significant coronary artery disease again. His echo showed normal wall motion. He has mildly dilated aortic root. His chest pain completely resolved. Likely, his elevated troponin was due to hypertensive urgency. This has been resolved with increasing dose of Cozaar and addition of Norvasc. He is advised to check blood pressure and pulse twice daily and record for a period of 10 days to follow up with Dr. Randall, his primary care physician. Please note, I have seen and examined the patient on the day of discharge. Job ID: [id number]
== END 2019-04-13 11:15 | disposition home or self-care (01) | DRG 282 ==
LOC: ERS 19:09 → ERHOLD 21:26 → OBSVTOIN 04-11 13:30 → 2NO 04-11 15:16
PROVIDERS: ADMIT Internal Medicine; ATTEND Internal Medicine
PROC: 4A023N7 Measurement of Cardiac Sampling and Pressure, Left Heart, Percutaneous Approach (ICD-10-PCS; principal; 2019-04-12)
PROC: B2151ZZ Fluoroscopy of Left Heart using Low Osmolar Contrast (ICD-10-PCS; 2019-04-12)
PROC: B2111ZZ Fluoroscopy of Multiple Coronary Arteries using Low Osmolar Contrast (ICD-10-PCS; 2019-04-12)
DX: I21.A1 Myocardial infarction type 2 (principal); I16.0 Hypertensive urgency; K21.9 Gastro-esophageal reflux disease without esophagitis; J45.909 Unspecified asthma, uncomplicated; I10 Essential (primary) hypertension; I48.0 Paroxysmal atrial fibrillation; E66.9 Obesity, unspecified; Z90.49 Acquired absence of other specified parts of digestive tract; Z68.32 Body mass index [BMI] 32.0-32.9, adult; Z79.899 Other long term (current) drug therapy
CPT/HCPCS: 36415; 71045; 80048; 80053; 82550; 82553; 83690; 83880; 84484; 85025; 93005; 93306; 93458; 96360; 99152; 99153; C1769; J1644; J1650; J2250; J3010; Q9967